=== PATIENT | female | born 1950 | race Native Hawaiian/Other Pacific Islander ===

== ENCOUNTER 2017-05-07 08:26 | Outpatient (CLI) | payer OTHER ==
[2017-05-07 09:14] LABS: POTASSIUM 3.6 mmol/L (3.6-5.2); SODIUM 136 mmol/L (136-145)
== END 2017-05-07 19:00 | disposition home or self-care (01) ==
LOC: RESP 08:26
PROVIDERS: Internal Medicine Cardiovascular Disease
DX: R06.02 Shortness of breath (principal)
CPT/HCPCS: 36415; 80048; 83880; 93306

== ENCOUNTER 2017-11-01 19:14 | Outpatient (CLI) | payer OTHER | END 2017-11-01 19:17 | disposition short-term general hospital (02) | LOC: AMB 19:14 | DX: I46.9 Cardiac arrest, cause unspecified (principal) | CPT/HCPCS: A0425; A0427 ==